=== PATIENT | female | born 1970 | race Caucasian/White ===

== ENCOUNTER 2021-11-19 14:53 | Emergency (ER) | payer OTHER ==
[~2021-11-19 14:53] MED LIST: IBUPROFEN600 MG PO; IBUPROFEN800 MG PO; IMODIUM CAP 2 MG2 MG PO; PERCOCET 5/325 T1 EA PO; PERCOCET 7.5-31 EACH PO; ZOFRAN ODT 4 MG4 MG PO; ZOFRAN4 MG PO
[2021-11-19] MEDS ORDERED: NAPROSYN500 MG PO (17:12)
[2021-11-20] MEDS ORDERED: Voltaren Gel 1 % TOP (13:55)
== END 2021-11-19 17:53 | disposition home or self-care (01) ==
LOC: ER1 14:53
DX: M25.561 Pain in right knee (principal); F17.210 Nicotine dependence, cigarettes, uncomplicated; Z88.1 Allergy status to other antibiotic agents; Z85.43 Personal history of malignant neoplasm of ovary
CPT/HCPCS: 29530; 73564; 96372; 99283; J1885

== ENCOUNTER 2021-11-20 11:26 | Emergency (ER) | payer OTHER ==
[~2021-11-20 11:26] MED LIST changes: +NAPROSYN500 MG PO
[2021-11-20 12:59] LABS: HEMOGLOBIN 10.4 gm/dl (12.3-15.3); RED BLOOD COUNT 4.4 M/UL (4.00-5.10); WHITE BLOOD COUNT 5.6 K/UL (4.5-11.0)
[2021-11-20 13:30] LABS: BUN/CREATININE RATIO 19 (0-10)
[2021-11-20] MEDS ORDERED: Voltaren Gel 1 % TOP (13:55)
== END 2021-11-20 14:30 | disposition home or self-care (01) ==
LOC: ER1 11:26
PROVIDERS: Physician Assistant Medical
DX: M25.461 Effusion, right knee (principal); F15.10 Other stimulant abuse, uncomplicated
CPT/HCPCS: 73700; 80053; 80307; 81001; 84550; 85025; 85652; 86140; 99284; G0480